=== PATIENT | female | born 1960 | race Caucasian/White ===

== ENCOUNTER 2018-06-16 20:21 | Emergency (ER) | payer MEDICARE ==
--- NOTE | 2018-06-16 21:28 | ERPHSYRPT ---
- History of Present Illness Time Seen by Provider: 06/16/18 21:19 Source: patient Exam Limitations: no limitations Patient Subjective Stated Complaint: pt states she began having pain in her rt wrist at approx 5pm. denies hitting her wrist or any other injury. states when she looked at her wrist she had bruising on the inside. Triage Nursing Assessment: pt alert and oriented, answers questions approp. pt ambualtory with steady gait noted. skin warm and dry. respirations nolabored. bruising, tenderness, and swelling noted to rt wrist. cap refill and radial pulse to rt wnl. Physician History: 58-year-old white female arrives with complaint of pain in her right wrist symptoms since approximately one hour ago she denies any injury states she has pain with palpation and movement right wrist. Past medical history includes developmental delay, anxiety "nerves". Patient denies atherosclerotic coronary artery disease high blood pressure. Past surgical history includes tubal ligation. Occurred: just prior to arrival (one hour prior to arriva) Quality: constant Severity of Pain-Max: mild Severity of Pain-Current: mild Extremities Pain Location: wrist: right Modifying Factors: Improves With: nothing Associated Symptoms: other (hematoma right anterior wrist) Allergies/Adverse Reactions: No Known Drug Allergies Allergy (Verified 06/16/18 21:09) Home Medications: Paroxetine HCl [Paxil] 40 mg PO DAILY 06/16/18 [History] Sertraline HCl 100 mg PO DAILY 06/16/18 [History] Sertraline HCl [Zoloft] 25 mg PO DAILY 06/16/18 [History] Hx Tetanus, Diphtheria Vaccination/Date Given: No Hx Influenza Vaccination/Date Given: Yes Hx Pneumococcal Vaccination/Date Given: No Immunizations Up to Date: Yes - Review of Systems Constitutional: No Fever, No Chills Eyes: No Symptoms Ears, Nose, & Throat: No Symptoms Respiratory: No Cough, No Dyspnea Cardiac: No Chest Pain, No Edema, No Syncope Abdominal/Gastrointestinal: No Abdominal Pain, No Nausea, No Vomiting, No Diarrhea Genitourinary Symptoms: No Dysuria Musculoskeletal: Other (Pain right anterior wrist, hematoma right anterior wrist ) Skin: Other (Hematoma right anterior wrist) Neurological: No Dizziness, No Focal Weakness, No Sensory Changes Psychological: No Symptoms Endocrine: No Symptoms All Other Systems: Reviewed and Negative - Past Medical History Pertinent Past Medical History: Yes Neurological History: Other ENT History: No Pertinent History Cardiac History: No Pertinent History Respiratory History: No Pertinent History Endocrine Medical History: No Pertinent History Musculoskeletal History: No Pertinent History GI Medical History: No Pertinent History History: No Pertinent History Psycho-Social History: No Pertinent History Female Reproductive Disorders: No Pertinent History Other Medical History: pt had recent chest pain about 6 months ago had stress test here, friend states it was negative. pt is developementally delayed. she states the patient smokes about 1 packs of ciggaretts a day. - Past Surgical History Past Surgical History: Yes Neuro Surgical History: No Pertinent History Cardiac: No Pertinent History Respiratory: No Pertinent History Gastrointestinal: No Pertinent History Genitourinary: No Pertinent History Musculoskeletal: No Pertinent History Female Surgical History: Tubal Ligation - Social History Smoking Status: Current every day smoker How long have you smoked: 40 yrs Exposure to second hand smoke: Yes Drug Use: none Patient Lives Alone: Yes - Nursing Vital Signs Nursing Vital Signs: Initial Vital Signs Temperature 98.6 F 06/16/18 21:01 Pulse Rate 100 H 06/16/18 21:01 Respiratory Rate 18 06/16/18 21:01 Blood Pressure 118/82 06/16/18 21:01 O2 Sat by Pulse Oximetry 95 06/16/18 21:01 Pain Scale Pain Intensity 10 - Physical Exam General Appearance: mild distress, alert, other (Chronic tremor) Eyes, Ears, Nose, Throat Exam: moist mucous membranes Neck Exam: non-tender, supple Cardiovascular/Respiratory Exam: chest non-tender, normal breath sounds, regular rate/rhythm, no respiratory distress Abdominal Exam: non-tender, No guarding Back Exam: normal inspection, No vertebral tenderness Shoulder Exam: normal inspection, non-tender, no evidence of injury, normal ROM Elbow/Forearm Exam: normal inspection, non-tender, no evidence of injury, normal ROM Wrist Exam: No normal inspection (right wrist decreased range of motion secondary to pain, 13 cm hematoma right anterior wrist. Right radial/ulnar pulses intact 2 over 4) Hand Exam: No normal inspection (right hand mildly decreased range of motion secondary to right wrist pain, good capillary refill right fingers, sensation intact right fingers) Neuro/Tendon Exam: normal sensation, normal motor functions Mental Status Exam: alert, oriented x 3, cooperative, other (Chronic tremor) Skin Exam: other (3 x 1 cm hematoma right wrist) SpO2 Interpretation: normal (95%) SpO2: 95 - Course Nursing assessment & vital signs reviewed: Yes - Radiology Exams Right Wrist X-ray Interpretation: Interpreted by me (X-ray right wrist abnormal appearance to ulnar styloid appears old no acute fractures or subluxation) Ordered Tests: Active Orders 24 hr Category Date Time Status Royer Bandage Application -[facility] STAT Care 06/16/18 21:51 Active WRIST (MIN 3 VIEWS) Stat Exams 06/16/18 21:23 Taken - Progress Progress: improved Progress Note: 06/16/18 22:17 X-ray right wrist (my read) abnormal appearance to Adi styloid appears to be old no fractures or subluxation. Royer wrap is applied to the patient's right wrist cold packs is applied. Patient is reexamined approximately 30 minutes later patient is improving no expansion of the hematoma. Patient did not want any pain medications or Tylenol. Will go ahead and discharge patient. Diagnosis right wrist pain. Hematoma right anterior wrist. Plan ice, elevate right wrist 24-48 hours Royer wrap right wrist be sure to check capillary refill make Royer wrap is not too tight. Follow-up with your family doctor if symptoms worse no better in 48 hours or persist longer than 72 hours. Return for acute distress or for severe symptoms. - Departure Departure Disposition: Home Clinical Impression: hematoma right anterior wrist, Right wrist pain Condition: Fair Critical Care Time: No Referrals: MICAH SMITH [Primary Care Provider] - Instructions: Contusion (DC) Additional Instructions: Return home. Ice and elevate right wrist 24-48 hours. Royer wrap 24-48 hours check capillary refill to fingers make sure it is not too tight. Tylenol every 4 hours as needed for pain. Follow-up with your family Dr. if your symptoms are worse, no better in 24-48 hours or persist longer than 48 hours. Return for acute distress or for severe symptoms. Your x-rays have been preliminarily read they will be reread tomorrow you will; be notified if any discrepancies are noted.
[2018-06-16 22:20] VITALS: BP 112/81; PULSE 90
[2018-06-16 22:21] VITALS: O2SAT 95
--- NOTE | 2018-06-17 08:52 | XRAY ---
Indication: Pain. No known injury. Comparison: None 3 views of the right wrist demonstrates degenerative radiocarpal joint space narrowing with faint chondrocalcinosis, distal ulnar bony deformity probable old injury, scapholunate widening probable underlying ligamentous tear, tiny posterior heterotopic ossifications either degenerative versus old injury, and degenerative changes of the distal radioulnar joint and base of the 1st metacarpal. No other bony, articular, or soft tissue abnormalities.
== END 2018-06-16 22:27 | disposition home or self-care (01) ==
LOC: ED 20:21
DX: M25.531 Pain in right wrist (principal)
CPT/HCPCS: 73110; 99283